=== PATIENT | female | born 1995 | race Caucasian/White ===

== ENCOUNTER 2017-09-10 21:07 | Emergency (ER) | payer SELFPAY ==
[~2017-09-10] VITALS: Ht 157.5 cm; Wt 67.6 kg
[~2017-09-10 21:07] MED LIST: ANTISOL30 LEFT EAR; OFLO.3%A LEFT EAR; ZITH250T PO
[2017-09-10 21:10] VITALS: BP 137/67; PULSE 106; RESP 18; TEMP 98.8; O2SAT 98
[2017-09-10] MEDS ORDERED: AZIT250T3 PO (21:22)
[2017-09-10] MEDS ORDERED: DICL75TA PO (21:22)
[2017-09-10] MEDS ORDERED: PRED20 PO (21:22)
--- NOTE | 2017-09-10 21:25 | PD ---
HPI Chief Complaint: ENT Complaint Time Seen by Provider: 21:18 Travel History International Travel<30 days: No Contact w/Intl Traveler<30days: No Traveled to known affect area: No History of Present Illness HPI 22-year-old female that presents to the ED for evaluation of cold-like symptoms. Per patient she's had ear pain bilaterally for the past week. Per patient she started having cold like symptoms and congestion and thought that the ear pain will go away as well but he has not. She continues to have the symptoms. She states has congestion but no cough. No fevers chills or sweats. Per patient the pain feels like pressure. 6 out of 10. Has not seen anybody for this. No other medical issues. PFSH Past Medical History ADHD: No Weight (Kg): 3 Cancer: No Cardiovascular Problems: No Developmental Delay: No Diabetes: No Diminished Hearing: No Headaches: Yes (IN THE PAST. DENIES AT THIS TIME.) Psychiatric: Yes Immunizations Current: Yes Migraines: No Seizures: No Thyroid Disease: No Ulcer: No Influenza Vaccination: No ?: Not LMP: 09/10/17 Past Surgical History Appendectomy: No Section: No Cholecystectomy: No Other Surgery: No Social History Alcohol Use: No Tobacco Use: No Substance Use: No Allergies-Medications (Allergen,Severity, Reaction): Coded Allergies: bacitracin (Unverified Allergy, Mild, 09/10/17) hydrocortisone (Unverified Allergy, Mild, 09/10/17) neomycin (Unverified Allergy, Mild, 09/10/17) polymyxin B (Unverified Allergy, Mild, 09/10/17) penicillin G (Unverified Allergy, Unknown, 09/10/17) Reported Meds & Prescriptions Reported Meds & Active Scripts Active Prednisone 20 Mg Tab 20 Mg PO BID [address] (Diclofenac Sodium) 75 Mg Tabdr 75 Mg PO BID PRN Azithromycin 250 Mg Tab 250 Mg PO DIRECTED Take 2 tabs (500 mg) on day 1 then 1 tab daily x 4 days. Zithromax Z-Dylon (Azithromycin) 250 Mg Tab 250 Mg PO DIRECTED 5 Days 500 MG (2 TABLETS) PO ON DAY 1, THEN 250 MG (1 TABLET) PO ON DAYS 2 TO 5. Antipyrine/Benzocaine Otic (Benzocaine/Antipyrine) 10 Ml Soln 1 Dose LEFT EAR 5 TIMES A DAY 7 Days Floxin (Ofloxacin) 0.3 % Soln 5 Drop LEFT EAR BID 10 Days Review of Systems Except as stated in HPI: all other systems reviewed are Neg Physical Exam Narrative GENERAL: Well-nourished, well-developed patient in no apparent distress. SKIN: Warm and dry. HEAD: Atraumatic. Normocephalic. EYES: Pupils equal and round reactive to light and accommodation. No scleral icterus. No injection or drainage. ENT: No nasal bleeding or discharge. Mucous membranes pink and moist. TMs are red and bulging bilaterally.. No mastoid tenderness. Ear canals are intact bilaterally. No lymphadenopathy. Nostril mucosa is red and moist with clear mucus noted. No sinus tenderness to palpation noted. Tonsils are not enlarged or swollen. No ulvua Deviation. Tongue is midline. NECK: Trachea midline. No JVD. No meningeal signs noted CARDIOVASCULAR: Regular rate and rhythm. RESPIRATORY: No accessory muscle use. Clear to auscultation. Breath sounds equal bilaterally. GASTROINTESTINAL: Abdomen soft, non-tender, nondistended. Hepatic and splenic margins not palpable. MUSCULOSKELETAL: Extremities without clubbing, cyanosis, or edema. No obvious deformities. NEUROLOGICAL: Awake and alert. No obvious cranial nerve deficits. Motor grossly within normal limits. Five out of 5 muscle strength in the arms and legs. Normal speech. PSYCHIATRIC: Appropriate mood and affect; insight and judgment normal. Data Data Last Documented VS Vital Signs Date Time Temp Pulse Resp B/P (MAP) Pulse Ox O2 Delivery O2 Flow Rate FiO2 09/10/17 21:10 98.8 106 18 137/67 (90) 98 MDM Medical Decision Making Medical Screen Exam Complete: Yes Emergency Medical Condition: Yes Medical Record Reviewed: Yes Differential Diagnosis Otitis media versus otitis externa versus sinusitis Narrative Course 22-year-old female that presents to the ED for evaluation of bilateral ear pain. Patient was properly examined and was found to have signs and symptoms consistent with appears to be otitis media. She'll be treated for this with azithromycin, prednisone and diclofenac sodium for pain. Told to continue taking decongestants [id number]. Follow with PCP. See ED worsening symptoms. Diagnosis Primary Impression: Otitis media Qualified Codes: H65.03 - Acute serous otitis media, bilateral Patient Instructions: General Instructions Additional Instructions: Motrin and Tylenol for pain and fever. You can use [id number] antihistamine as well as well as Mucinex as needed for runny nose and congestion. Drink plenty of fluids. Follow-up with PCP. See ED for worsening symptoms. Med/Other Pt SpecificInfo: Prescription(s) given Scripts Prednisone (Prednisone) 20 Mg Tab 20 MG PO BID for 3 Days, #6 TAB 0 Refills Prov: Maximino Ellis MD 09/10/[address] (Diclofenac Sodium DR) 75 Mg Tabdr 75 MG PO BID Y for PAIN SCALE 1 TO 10, #20 TAB 0 Refills Prov: Maximino Ellis MD 09/10/17 Azithromycin (Azithromycin) 250 Mg Tab 250 MG PO DIRECTED for Infection, #6 TAB 0 Refills Take 2 tabs (500 mg) on day 1 then 1 tab daily x 4 days. Prov: Maximino Ellis MD 09/10/17 Disposition: 01 DISCHARGE HOME Condition: Stable Mckinley Ott Sep 10, 2017 21:25
== END 2017-09-10 21:22 | disposition home or self-care (01) ==
LOC: PHEFT 21:07
DX: H65.03 Acute serous otitis media, bilateral (principal)
CPT/HCPCS: 99283